=== PATIENT | male | born 1975 | race Two or more races ===

== ENCOUNTER 2017-01-07 20:11 | Emergency (ER) | payer SELFPAY ==
[2017-01-07] MEDS ORDERED: NO HOME MEDICATION XX (20:14)
[2017-01-07] MEDS ORDERED: OMEPRAZOLE20 M4 PO (20:43)
[2017-01-07] MEDS ORDERED: ANUSOL-HC25 MG PR (21:39)
[2017-01-07 22:13] LABS: URINE BILIRUBIN NEGATIVE (NEG); URINE BLOOD NEGATIVE (NEG); URINE GLUCOSE (UA) NEGATIVE (NEG); URINE KETONE NEGATIVE (NEG); URINE LEUKOCYTE ESTERASE NEGATIVE (NEG); URINE NITRITE NEGATIVE (NEG); URINE PROTEIN NEGATIVE (NEG)
[2017-01-07 22:37] LABS: URINE APPEARANCE CLEAR; URINE COLOR PALE YELLOW
== END 2017-01-07 22:52 ==
LOC: EDMED 20:11
PROVIDERS: Family Medicine
DX: K62.89 Other specified diseases of anus and rectum (principal)